=== PATIENT | male | born 1960 | race African-American/Black ===

== ENCOUNTER 2017-10-27 15:19 | Inpatient (IN) | payer OTHER ==
[2017-10-27 17:04] VITALS: BMI 25.7
--- NOTE | 2017-10-27 21:04 | HP ---
CIWA Score - CIWA Score Nausea/Vomitin Muscle Tremors: 4-Moderate,w/Arms Extend Anxiety: 4-Mod. Anxious/Guarded Agitation: 1-Slight > Activity Paroxysmal Sweats: 2 Orientation: 0-Oriented Tacttile Disturbances: 0-None Auditory Disturbances: 0-None Visual Disturbances: 0-None Headache: 0-None Present CIWA-Ar Total Score: 13 Admission ROS BHS - HPI Chief Complaint: Alcohol withdrawal symptoms Allergies/Adverse Reactions: Allergies Allergy/AdvReac Type Severity Reaction Status Date / Time No Known Allergies Allergy Verified 10/27/17 21:01 History of Present Illness: 57 years old male with 20 years history of alcohol dependence is seeking admission to detox. Patient has been to previous detox at [facility] and reports 8 years of sobriety. He has medical history of HTN, anxiety and depression. He denies suicide attempt and suicidal ideation at this time. Exam Limitations: No Limitations - Ebola screening Have you traveled outside of the country in the last 21 days: No Have you had contact with anyone from an Ebola affected area: No Have you been sick,other than usual withdrawal symptoms: No Do you have a fever: No - Review of Systems Constitutional: Chills, Loss of Appetite, Malaise, Night Sweats, Changes in sleep EENT: reports: No Symptoms Reported Respiratory: reports: No Symptoms reported Cardiac: reports: No Symptoms Reported GI: reports: Poor Appetite, Poor Fluid Intake, Abdominal cramping : reports: No Symptoms Reported Musculoskeletal: reports: Back Pain, Muscle Pain, Muscle Weakness Integumentary: reports: Dryness, Flushing Neuro: reports: Tingling, Tremors Endocrine: reports: No Symptoms Reported Hematology: reports: No Symptoms Reported Psychiatric: reports: Orientated x3, Anxious, Depressed Other Systems: Reviewed and Negative Patient History - Patient Medical History Hx Anemia: No Hx Asthma: No Hx Chronic Obstructive Pulmonary Disease (COPD): No Hx Cancer: No Hx Cardiac Disorders: No Hx Congestive Heart Failure: No Hx Hypertension: Yes (Clonidine) Hx Hypercholesterolemia: No Hx Pacemaker: No HX Cerebrovascular Accident: No Hx Seizures: No Hx Dementia: No Hx Diabetes: No Hx Gastrointestinal Disorders: No Hx Liver Disease: No Hx Genitourinary Disorders: No Hx Sexually Transmitted Disorders: No Hx Renal Disease (ESRD): No Hx Thyroid Disease: No Hx Human Immunodeficiency Virus (HIV): No (Negative 2017) Hx Hepatitis C: No Hx Depression: Yes (Zyprexa) Hx Suicide Attempt: No (Denies suicide attempt and suicidal ideation at this time) Hx Bipolar Disorder: Yes (Zyprexa) Hx Schizophrenia: Yes (Zyprexa) - Patient Surgical History Past Surgical History: No - PPD History Previous Implant?: Yes Documented Results: Negative w/o proof Implanted On Prior [facility] Admission?: Yes PPD to be Administered?: Yes - Reproductive History Patient is a Female of Child Bearing Age (11 -55 yrs old): No (MALE) - Smoking Cessation Smoking history: Current every day smoker Have you smoked in the past 12 months: Yes Aproximately how many cigarettes per day: 20 Hx Chewing Tobacco Use: No Initiated information on smoking cessation: Yes 'Breaking Loose' booklet given: 10/27/17 - Substance & Tx. History Hx Alcohol Use: Yes Hx Substance Use: Yes Substance Use Type: Alcohol, Cocaine, Marijuana Hx Substance Use Treatment: Yes ([facility] CALL) - Substances Abused Alcohol Route: Oral Frequency: Daily Amount used: BARCARDI - A FIFTH Age of first use: 12 Date of Last Use: 10/27/17 Cocaine Route: Smoking Frequency: Daily Amount used: $300 Age of first use: 12 Date of Last Use: 10/27/17 Marijuana/Hashish Route: Smoking Frequency: Daily Amount used: $100 Age of first use: 12 Date of Last Use: 10/27/17 Family Disease History - Family Disease History Family History: Denies Admission Physical Exam [facility] - Vital Signs Vital Signs: Vital Signs - 24 hr 10/27/17 17:02 Temperature 98.9 F Pulse Rate 73 Respiratory 20 Rate Blood Pressure 150/96 - Physical General Appearance: Yes: Moderate Distress, Tremorous, Sweating, Anxious HEENTM: Yes: EOMI, Normocephalic, Normal Voice, MINISTERIO, Other (missing upper denture and missing lower teeth) Respiratory: Yes: Lungs Clear, Normal Breath Sounds, No Respiratory Distress Neck: Yes: Supple Breast: Yes: Breast Exam Deferred Cardiology: Yes: Tachycardia Abdominal: Yes: Normal Bowel Sounds, Soft Genitourinary: Yes: Within Normal Limits Back: Yes: Normal Inspection Musculoskeletal: Yes: Back pain Extremities: Yes: Tremors Neurological: Yes: Alert, Normal Mood/Affect Integumentary: Yes: Dry Lymphatic: Yes: Within Normal Limits - Diagnostic (1) Alcohol dependence with uncomplicated withdrawal Current Visit: Yes Status: Chronic (2) Cocaine dependence, uncomplicated Current Visit: Yes Status: Chronic (3) Cannabis dependence, uncomplicated Current Visit: Yes Status: Chronic (4) HTN (hypertension) Current Visit: Yes Status: Chronic Qualifiers: Hypertension type: essential hypertension Qualified Code(s): I10 - Essential (primary) hypertension (5) Anxiety Current Visit: Yes Status: Chronic (6) Depression Current Visit: Yes Status: Chronic Qualifiers: Depression Type: major depressive disorder Cleared for Admission [facility] - Detox or Rehab [facility] Level of Care: Medically Managed Detox Regimen/Protocol: Librium [facility] Breath Alcohol Content Breath Alcohol Content: 0 Urine Drug Screen - Results Drug Screen Negative: No Urine Drug Screen Results: THC-Marijuana, DONALDO-Cocaine
[2017-10-27] MEDS ORDERED: guaiFENesin/D-METHORPHAN HB 10 ML UNIT-DOSE CUPS PO PRN (21:16)
[2017-10-27] MEDS ORDERED: MAGNESIUM HYDROX 2400MG/30ML ORAL SUSPENSION 30 ML CUP PO PRN (21:16)
[2017-10-27] MEDS ORDERED: MENTHOL/PHENOL 1 EACH UD MM PRN (21:16)
[2017-10-27] MEDS ORDERED: LOPERAMIDE HCL 2 MG CAPSULE PO PRN (21:16)
[2017-10-27] MEDS ORDERED: P-EPHED 60MG/TRIPROLIDI 2.5MG TABLET PO PRN (21:16)
[2017-10-27] MEDS ORDERED: ACETAMINOPHEN 325 MG TABLET (FP) PO PRN (21:16)
[2017-10-27] MEDS ORDERED: NICOTINE POLACRILEX 2 MG GUM BC PRN (21:16)
[2017-10-27] MEDS ORDERED: IBUPROFEN 400 MG TABLET (FP) PO PRN (21:16)
[2017-10-27] MEDS ORDERED: chlordiazePOXIDE HCL 25 MG CAPSULE PO PRN (21:16)
[2017-10-27] MEDS ORDERED: MAGNESIUM CITRATE 300 ML BOTTLE PO PRN (21:16)
[2017-10-27] MEDS ORDERED: MELATONIN 5 MG TABLETS PO PRN (22:00)
[2017-10-27] MEDS: chlordiazePOXIDE HCL 25 MG CAPSULE PO SCH (23:24)
[2017-10-27] MEDS: THIAMINE HCL 100 MG TABLET (FP) PO SCH (23:26)
[2017-10-28] MEDS: chlordiazePOXIDE HCL 25 MG CAPSULE PO SCH ×4 (05:10→22:04)
[2017-10-28] MEDS ORDERED: cloNIDine HCL 0.1 MG TABLET PO ONE (06:18)
--- NOTE | 2017-10-28 06:21 | PN ---
BHS Progress Note Note: Patient's blood pressure is B/P 184/101. Patient is asymptomatic Last Vital Signs Action: Clonidine 0.1mg tablet oralTemp Pulse Resp BP Pulse Ox 96.5 F L 78 18 184/101 10/28/17 06:05 10/28/17 06:05 10/28/17 06:05 10/28/17 06:05 Vital Signs Temperature 96.5 F L 10/28/17 06:05 Pulse Rate 78 10/28/17 06:05 Respiratory Rate 18 10/28/17 06:05 Blood Pressure 184/101 10/28/17 06:05 O2 Sat by Pulse Oximetry (%) Action: Clonidine 0.1mg tablet oral ordered.
[2017-10-28 10:03] LABS: HEMATOCRIT 36.7 % (35.4-49); MCHC 32.6 g/dl (32.0-35.9); MEAN CELL VOLUME 89.1 fl (80-96); MEAN PLT VOLUME 9.2 fl (7.5-11.1); PLATELET COUNT 246 K/MM3 (134-434); RBC 4.12 M/mm3 (4.00-5.60); RDW 16.9 % (11.9-15.9); WHITE BLOOD COUNT 7.1 K/mm3 (4.0-10.0)
[2017-10-28 10:28] LABS: CHLORIDE 109 mmol/L (98-107); POTASSIUM 3.6 mmol/L (3.5-5.1); SODIUM 142 mmol/L (136-145)
[2017-10-28] MEDS: PRENATAL VITAMINS W/ FOLIC ACID TABLET (FP) PO SCH (10:59)
[2017-10-28] MEDS: NICOTINE 14 MG/24 HOURS TOPICAL PATCH TD SCH (10:59)
[2017-10-28 11:12] LABS: ALBUMIN 3.1 g/dl (3.4-5.0); ALK PHOS 67 U/L (45-117); ANION GAP 10 (8-16); BILIRUBIN,TOTAL 0.5 mg/dL (0.2-1.0); BLOOD UREA NITROGEN 25 mg/dL (7-18); CALCIUM 8.6 mg/dL (8.5-10.1); CO2 23 mmol/L (21-32); GLUCOSE,RANDOM 107 mg/dL (74-106); SGOT/AST 12 U/L (15-37); SGPT/ALT 17 U/L (12-78); TOT PROT 6.7 g/dl (6.4-8.2)
--- NOTE | 2017-10-28 11:27 | EKG ---
Test Reason : Blood Pressure : / mmHG Vent. Rate : 075 BPM Atrial Rate : 075 BPM P-R Int : 162 ms QRS Dur : 082 ms QT Int : 410 ms P-R-T Axes : 067 038 048 degrees QTc Int : 457 ms NORMAL SINUS RHYTHM POSSIBLE LEFT ATRIAL ENLARGEMENT LEFT VENTRICULAR HYPERTROPHY ABNORMAL ECG NO PREVIOUS ECGS AVAILABLE Confirmed by MANJIT CANSECO MD ([id number]) on 10/28/2017 11:27:10 AM Referred By: Confirmed By:MANJIT CANSECO MD
[2017-10-28] MEDS: LISINOPRIL 20 MG TABLET (FP) PO SCH (14:08)
[2017-10-28] MEDS: amLODIPine BESYLATE 10 MG TABLET (FP) PO SCH (14:08)
--- NOTE | 2017-10-28 15:40 | PN ---
[facility] CIWA - CIWA Score Nausea/Vomitin-No Nausea/No Vomiting Muscle Tremors: 3 Anxiety: 5 Agitation: 5 Paroxysmal Sweats: 2 Orientation: 0-Oriented Tacttile Disturbances: 1-Very Mild Itch/Numbness Auditory Disturbances: 2-Mild Harshness/Frighten Visual Disturbances: 0-None Headache: 0-None Present CIWA-Ar Total Score: 18 BHS Progress Note (SOAP) Subjective: Anxious, Agitated, Tremors, Sweating, Interrupted Sleep. Objective: PATIENT A & O X 3, OBSERVED AMBULATING ON UNIT. NO ACUTE DISTRESS. 10/28/17 15:34 Vital Signs Temperature 97.2 F L 10/28/17 13:03 Pulse Rate 80 10/28/17 13:03 Respiratory Rate 20 10/28/17 13:03 Blood Pressure 180/103 10/28/17 13:03 O2 Sat by Pulse Oximetry (%) Laboratory Tests 10/28/17 10/28/17 10/28/17 07:50 07:50 07:50 WBC 7.1 RBC 4.12 Hgb 12.0 Hct 36.7 MCV 89.1 MCH 29.0 MCHC 32.6 RDW 16.9 H Plt Count 246 MPV 9.2 Sodium 142 Potassium 3.6 Chloride 109 H Carbon Dioxide 23 Anion Gap 10 BUN 25 H Creatinine 1.0 Creat Clearance w eGFR > 60 Random Glucose 107 H Calcium 8.6 Total Bilirubin 0.5 AST 12 L ALT 17 Alkaline Phosphatase 67 Total Protein 6.7 Albumin 3.1 L RPR Titer Nonreactive LABS NOTED. UA RESULTS PENDING. 10/28/17 15:35 Assessment: 10/28/17 15:34 WITHDRAWAL SYMPTOMS. HYPERTENSION. 10/28/17 15:40 Plan: CONTINUE DETOX. START LISINOPRIL, 20 MG PO AND AMLODIPINE, 10 MG PO DAILY FOR ELEVATED BP ( PATIENT HAS HISTORY OF PRESCRIPTION OF LOTRELL 10-20 BY OUTSIDE MEDICAL PROVIDER. PATIENT REPORTS THAT HE IS HAVING DIFFICULTY SWALLOWING LIBRIUM DUE TO FACT THAT IT IS CRUSHED AND DISSOLVED INTO LIQUID. PATIENT DECLINES OFFER OF CHANGE OF MEDICATION REGIMEN TO VALIUM DETOX REGIMEN. PATIENT ADVISED TO CONSUME A LARGE AMOUNT OF FLUID ALONG WITH AND IMMEDIATELY AFTER TAKING OF LIBRIUM.
[2017-10-28 16:25] LABS: URINE APPEARANCE CLEAR; URINE BILIRUBIN NEGATIVE (<2.0 mg/dL); URINE COLOR LTYELLOW; URINE GLUCOSE (UA) NEGATIVE (NEGATIVE); URINE KETONE NEGATIVE (NEGATIVE); URINE LEUK ESTERASE NEGATIVE (NEGATIVE); URINE NITRITE NEGATIVE (NEGATIVE); URINE UROBILINOGEN NEGATIVE mg/dL (0.2-1.0)
[2017-10-28 16:31] LABS: URINE PROTEIN 1+ (NEGATIVE)
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
[2017-10-28] MEDS: MAG HYDROX/AL HYDROX/SIMETH 30 ML UNIT-DOSE CUP PO PRN (17:34)
[2017-10-28] MEDS: THIAMINE HCL 100 MG TABLET (FP) PO SCH (22:03)
[2017-10-28] MEDS: ZOLPIDEM TARTRATE 5 MG TABLET PO PRN (22:03)
[2017-10-28] MEDS: OLANZapine 10 MG TABLET PO SCH (22:03)
[2017-10-29] MEDS: chlordiazePOXIDE HCL 25 MG CAPSULE PO SCH ×3 (05:06→17:21)
[2017-10-29] MEDS ORDERED: cloNIDine HCL 0.1 MG TABLET PO ONE (06:49)
--- NOTE | 2017-10-29 06:52 | PN ---
S Progress Note Note: Patient's blood pressure is B/P 174/109. Patient is asymptomatic Vital Signs Temperature 97.3 F L 10/29/17 05:53 Pulse Rate 82 10/29/17 05:53 Respiratory Rate 20 10/29/17 05:53 Blood Pressure 174/109 10/29/17 05:53 O2 Sat by Pulse Oximetry (%) Action: Clonidine 0.2 mg tablet oral ordered
[2017-10-29] MEDS: PRENATAL VITAMINS W/ FOLIC ACID TABLET (FP) PO SCH (10:49)
[2017-10-29] MEDS: amLODIPine BESYLATE 10 MG TABLET (FP) PO SCH (10:50)
[2017-10-29] MEDS: NICOTINE 14 MG/24 HOURS TOPICAL PATCH TD SCH (10:50)
[2017-10-29] MEDS: LISINOPRIL 20 MG TABLET (FP) PO SCH (10:50)
--- NOTE | 2017-10-29 14:02 | PN ---
[facility] CIWA - CIWA Score Nausea/Vomitin-No Nausea/No Vomiting Muscle Tremors: 2 Anxiety: 5 Agitation: 4-Moderately Restless Paroxysmal Sweats: 2 Orientation: 0-Oriented Tacttile Disturbances: 2-Mild Itch/Numbness/Burn Auditory Disturbances: 0-None Visual Disturbances: 0-None Headache: 0-None Present CIWA-Ar Total Score: 15 BHS Progress Note (SOAP) Subjective: Sweating, Tremors, Anxious. Objective: PATIENT A & O X 3, OBSERVED AMBULATING ON UNIT. NO ACUTE DISTRESS. 10/29/17 14:00 Vital Signs Temperature 97.4 F L 10/29/17 10:26 Pulse Rate 83 10/29/17 10:26 Respiratory Rate 18 10/29/17 10:26 Blood Pressure 133/81 10/29/17 10:26 O2 Sat by Pulse Oximetry (%) Laboratory Tests 10/28/17 10/28/17 10/28/17 07:50 07:50 07:50 WBC 7.1 RBC 4.12 Hgb 12.0 Hct 36.7 MCV 89.1 MCH 29.0 MCHC 32.6 RDW 16.9 H Plt Count 246 MPV 9.2 Sodium 142 Potassium 3.6 Chloride 109 H Carbon Dioxide 23 Anion Gap 10 BUN 25 H Creatinine 1.0 Creat Clearance w eGFR > 60 Random Glucose 107 H Calcium 8.6 Total Bilirubin 0.5 AST 12 L ALT 17 Alkaline Phosphatase 67 Total Protein 6.7 Albumin 3.1 L Urine Color Urine Appearance Urine pH Ur Specific [place] Urine Protein Urine Glucose (UA) Urine Ketones Urine Blood Urine Nitrite Urine Bilirubin Urine Urobilinogen Ur Leukocyte Esterase Urine WBC (Auto) Urine RBC (Auto) RPR Titer Nonreactive 10/28/17 13:50 WBC RBC Hgb Hct MCV MCH MCHC RDW Plt Count MPV Sodium Potassium Chloride Carbon Dioxide Anion Gap BUN Creatinine Creat Clearance w eGFR Random Glucose Calcium Total Bilirubin AST ALT Alkaline Phosphatase Total Protein Albumin Urine Color Ltyellow Urine Appearance Clear Urine pH 5.0 Ur Specific [place] 1.020 Urine Protein 1+ H Urine Glucose (UA) Negative Urine Ketones Negative Urine Blood 1+ H Urine Nitrite Negative Urine Bilirubin Negative Urine Urobilinogen Negative Ur Leukocyte Esterase Negative Urine WBC (Auto) 1 Urine RBC (Auto) 6 RPR Titer LABS NOTED. Assessment: 10/29/17 14:00 WITHDRAWAL SYMPTOMS. Plan: CONTINUE DETOX. INCREASE DAILY PO FLUID INTAKE.
[2017-10-29] MEDS: MAG HYDROX/AL HYDROX/SIMETH 30 ML UNIT-DOSE CUP PO PRN ×2 (17:21→23:20)
[2017-10-29] MEDS: chlordiazePOXIDE 5 MG CAPSULE PO SCH (22:03)
[2017-10-29] MEDS: THIAMINE HCL 100 MG TABLET (FP) PO SCH (22:03)
[2017-10-29] MEDS: OLANZapine 10 MG TABLET PO SCH (22:03)
[2017-10-29] MEDS: ZOLPIDEM TARTRATE 5 MG TABLET PO PRN (22:03)
[2017-10-30] MEDS: MAG HYDROX/AL HYDROX/SIMETH 30 ML UNIT-DOSE CUP PO PRN ×2 (05:11→17:11)
[2017-10-30] MEDS: chlordiazePOXIDE 5 MG CAPSULE PO SCH ×3 (05:12→17:10)
[2017-10-30] MEDS: amLODIPine BESYLATE 10 MG TABLET (FP) PO SCH (10:09)
[2017-10-30] MEDS: LISINOPRIL 20 MG TABLET (FP) PO SCH (10:09)
[2017-10-30] MEDS: PRENATAL VITAMINS W/ FOLIC ACID TABLET (FP) PO SCH (10:09)
[2017-10-30] MEDS: NICOTINE 14 MG/24 HOURS TOPICAL PATCH TD SCH (10:09)
--- NOTE | 2017-10-30 12:50 | PN ---
S Progress Note (SOAP) Subjective: Anxious, agitated; refusing librium stating he just came here for peace of mind and doesn't need to take librium. Patient stated his b/p has been high since he was born and that even when he's , his b/p will be still high and that he doesn't need to take b/p medication. Supervisor [employer] encouraged patient to take his medications in preventing health related problems. Objective: 10/30/17 12:46 Last Vital Signs Temp Pulse Resp BP Pulse Ox 97.2 F L 80 16 167/97 10/30/17 09:40 10/30/17 09:40 10/30/17 09:40 10/30/17 09:40 Laboratory Tests 10/28/17 10/28/17 10/28/17 07:50 07:50 07:50 WBC 7.1 RBC 4.12 Hgb 12.0 Hct 36.7 MCV 89.1 MCH 29.0 MCHC 32.6 RDW 16.9 H Plt Count 246 MPV 9.2 Sodium 142 Potassium 3.6 Chloride 109 H Carbon Dioxide 23 Anion Gap 10 BUN 25 H Creatinine 1.0 Creat Clearance w eGFR > 60 Random Glucose 107 H Calcium 8.6 Total Bilirubin 0.5 AST 12 L ALT 17 Alkaline Phosphatase 67 Total Protein 6.7 Albumin 3.1 L Urine Color Urine Appearance Urine pH Ur Specific [place] Urine Protein Urine Glucose (UA) Urine Ketones Urine Blood Urine Nitrite Urine Bilirubin Urine Urobilinogen Ur Leukocyte Esterase Urine WBC (Auto) Urine RBC (Auto) RPR Titer Nonreactive 10/28/17 13:50 WBC RBC Hgb Hct MCV MCH MCHC RDW Plt Count MPV Sodium Potassium Chloride Carbon Dioxide Anion Gap BUN Creatinine Creat Clearance w eGFR Random Glucose Calcium Total Bilirubin AST ALT Alkaline Phosphatase Total Protein Albumin Urine Color Ltyellow Urine Appearance Clear Urine pH 5.0 Ur Specific [place] 1.020 Urine Protein 1+ H Urine Glucose (UA) Negative Urine Ketones Negative Urine Blood 1+ H Urine Nitrite Negative Urine Bilirubin Negative Urine Urobilinogen Negative Ur Leukocyte Esterase Negative Urine WBC (Auto) 1 Urine RBC (Auto) 6 RPR Titer Labs reviewed: abnormal UA Assessment: 10/30/17 12:48 Withdrawal symptoms Noted with uncontrolled HTN and abnormal UA Plan: Continue detox Encouraged PO hydration (water), encouraged detox but patient refused librium stating he has been taking the rest of his medication Uncontrolled HTN: continue regimen Abnormal UA: repeat UA
[2017-10-30] MEDS: OLANZapine 10 MG TABLET PO SCH (22:04)
[2017-10-30] MEDS: THIAMINE HCL 100 MG TABLET (FP) PO SCH (22:04)
[2017-10-30] MEDS: chlordiazePOXIDE HCL 10 MG CAPSULE PO SCH (22:06)
[2017-10-30 22:18] VITALS: PULSE 76
[2017-10-31] MEDS: chlordiazePOXIDE HCL 10 MG CAPSULE PO SCH (06:10)
[2017-10-31 06:27] VITALS: BP 160/95; TEMP 95.6
[2017-10-31] MEDS ORDERED: cloNIDine HCL 0.1 MG TABLET PO ONE (07:52)
[2017-10-31 10:36] LABS: URINE APPEARANCE CLEAR; URINE BILIRUBIN NEGATIVE (<2.0 mg/dL); URINE COLOR COLORLESS; URINE GLUCOSE (UA) NEGATIVE (NEGATIVE); URINE KETONE NEGATIVE (NEGATIVE); URINE LEUK ESTERASE NEGATIVE (NEGATIVE); URINE NITRITE NEGATIVE (NEGATIVE); URINE PROTEIN NEGATIVE (NEGATIVE); URINE UROBILINOGEN NEGATIVE mg/dL (0.2-1.0)
--- NOTE | 2017-10-31 11:13 | PN ---
BHS Progress Note (SOAP) Subjective: Denies any complaints States feels "very fine" Objective: 10/31/17 11:10 A & O x 3 No distress noted Vital Signs Temperature 95.6 F L 10/31/17 06:26 Pulse Rate 76 10/31/17 06:26 Respiratory Rate 18 10/31/17 06:26 Blood Pressure 160/95 10/31/17 06:26 O2 Sat by Pulse Oximetry (%) Bp elevated - denies headaches, dizziness, chest pains/discomfort Assessment: 10/31/17 11:12 Detox safely completed Plan: For d/c
[2017-10-31 11:15] LABS: EPI CELLS RARE /HPF (FEW)
--- NOTE | 2017-10-31 11:26 | DS ---
[facility] Detox Discharge Summary Admission Date: 10/27/17 Discharge Date: 10/31/17 - History Additional Comments: Pt being d/c to home. States he has good support when he gets home and will do AA meetings when he can. Declined refill of the his Bp med., states he has enough at home Condition improved, A & O x 3, gait steady Pertinent Past History: HTN - Physical Exam Results Vital Signs: Vital Signs Temperature 95.6 F L 10/31/17 06:26 Pulse Rate 76 10/31/17 06:26 Respiratory Rate 18 10/31/17 06:26 Blood Pressure 160/95 10/31/17 06:26 O2 Sat by Pulse Oximetry (%) Pertinent Admission Physical Exam Findings: withdrawal sx - Treatment Hospital Course: Detox Protocol Followed, Detoxed Safely, Responded well, Discharged Condition Good - Medication Discharge Medications: Ambulatory Orders Ibuprofen 800 mg PO BID 10/27/17 Amlodipine Besylate/Benazepril [Lotrel 10-20 mg Capsule] 10 - 20 mg PO DAILY Olanzapine 15 mg PO HS #30 tablet 10/29/17 - Diagnosis (1) Alcohol dependence with uncomplicated withdrawal Current Visit: Yes Status: Acute (2) Substance induced mood disorder Current Visit: Yes Status: Acute (3) Anxiety Current Visit: Yes Status: Chronic (4) Cannabis dependence, uncomplicated Current Visit: Yes Status: Chronic (5) Cocaine dependence, uncomplicated Current Visit: Yes Status: Chronic (6) Depression Current Visit: Yes Status: Chronic Qualifiers: Depression Type: major depressive disorder Major depression recurrence: unspecified whether recurrent Active/Remission status: remission status unspecified Qualified Code(s): F32.9 - Major depressive disorder, single episode, unspecified (7) HTN (hypertension) Current Visit: Yes Status: Chronic Qualifiers: Hypertension type: essential hypertension Qualified Code(s): I10 - Essential (primary) hypertension (8) Abnormal finding on urinalysis Current Visit: Yes Status: Acute - AMA Did Patient Leave Against Medical Advice: No
== END 2017-10-31 08:55 | disposition home or self-care (01) | DRG 774 ==
LOC: YASAS 15:19 → Y3N 21:46
PROVIDERS: ADMIT Internal Medicine; ATTEND Internal Medicine
PROC: HZ2ZZZZ Detoxification Services for Substance Abuse Treatment (ICD-10-PCS; principal; 2017-10-27)
DX: F10.230 Alcohol dependence with withdrawal, uncomplicated (principal); F14.20 Cocaine dependence, uncomplicated; F12.20 Cannabis dependence, uncomplicated; F19.24 Other psychoactive substance dependence with psychoactive substance-induced mood disorder; F41.9 Anxiety disorder, unspecified; F32.9 Major depressive disorder, single episode, unspecified; F43.10 Post-traumatic stress disorder, unspecified; G47.00 Insomnia, unspecified; I10 Essential (primary) hypertension; R82.90 Unspecified abnormal findings in urine
CPT/HCPCS: 36415; 80053; 81003; 81015; 85027; 86593; 93005; 93010; J0735